=== PATIENT | female | born 1965 | race Two or more races ===

== ENCOUNTER 2020-01-05 10:48 | Emergency (ER) | payer SELFPAY ==
[~2020-01-05] VITALS: Ht 152.4 cm; Wt 125.0 kg
[2020-01-05 10:59] VITALS: BP 163/102
[2020-01-05] MEDS ORDERED: diazePAM 5 MG TABLET PO ONE (11:00)
[2020-01-05] MEDS ORDERED: HYDROcodone/APAP 5/325MG 1 TAB TABLET PO ONE (11:00)
[2020-01-05] MEDS ORDERED: CYCL10TA2 PO (11:07)
[2020-01-05] MEDS ORDERED: HYDR-3164 PO (11:07)
--- NOTE | 2020-01-05 11:07 | PHYS DOC ---
Past Medical History Past Medical History: Renal Failure (MONETHENRIK DELEON) Adult General Chief Complaint Chief Complaint: BACK PAIN - NO INJURY HPI HPI Patient is a 54 year old female with history of end-stage kidney disease on dialysis Saturday last dialyzed on Saturday last week who presents to the ED today complaining of mild intermittent bilateral low back pain no nradiating in nature that began 3 days ago. Patient reports pain is worse on palpation of her low back, patient denies any injury. Denies any loss of bowel bladder function. She reports she has tried taking ibuprofen with no relief. (MONETHENRIK DELEON) Review of Systems Review of Systems Constitutional: Denies fever or chills [] : Denies dysuria or hematuria [] Musculoskeletal: Reports low back pain Integument: Denies rash or skin lesions [] Neurologic: Denies headache, focal weakness or sensory changes [] All other systems were reviewed and found to be within normal limits, except as documented in this note. (ROSABRUCEEmmaHENRIK APRN) Current Medications Current Medications Current Medications Medications (Trade) Dose Ordered Sig/Elizabeth Start Time Stop Time Status Last Admin Dose Admin Acetaminophen/ Hydrocodone Bitart (Lortab 5/325) 1 tab 1X ONCE 01/05/20 11:00 01/05/20 11:22 DC 01/05/20 11:31 1 TAB Diazepam (Valium) 5 mg 1X ONCE 01/05/20 11:00 01/05/20 11:22 DC 01/05/20 11:30 5 MG (GOLLAPALLI,MARLEY E DO) Allergies Allergies Allergies Coded Allergies Type Severity Reaction Last Updated Verified dextran sulfate Allergy Intermediate 01/05/20 Yes (GOLLAPALLI,MARLEY E DO) Physical Exam Physical Exam Constitutional: Well developed, well nourished, no acute distress, non-toxic appearance. [] Abdomen: Bowel sounds normal, soft, no tenderness, no masses, no pulsatile mas ses. [] Skin: Warm, dry, no erythema, no rash. [] Back: Diffuse paraspinal muscle tenderness bilateral lumbar spine, no midline lumbar spine tenderness, no CVA tenderness. [] Extremities: No tenderness, no cyanosis, no clubbing, ROM intact, no edema. [] Neurologic: Alert and oriented X 3, normal motor function, normal sensory function, no focal deficits noted. [] Psychologic: Affect normal, judgement normal, mood normal. [] (HENRIK HEALY APRN) Current Patient Data Vital Signs Vital Signs Date Time Temp Pulse Resp B/P (MAP) Pulse Ox O2 Delivery O2 Flow Rate FiO2 01/05/20 11:31 18 98 Room Air 01/05/20 10:59 97.9 94 163/102 (122) 97.9 (MARLEY BORGES DO) EKG EKG [] (HENRIK HEALY APRN) Radiology/Procedures Radiology/Procedures [] (HENRIK HEALY APRN) Course & Med Decision Making Course & Med Decision Making Pertinent Labs and Imaging studies reviewed. (See chart for details) This is a 54-year-old female patient presenting to the ED today with low back pain, no known injury. No cauda equina syndrome symptoms. Patient was discharged to home with instructions to follow-up with the PCP. She is on dialysis, her next dialysis session is tomorrow. Encouraged to make sure she does not miss it considering she missed the one on Saturday. (HENRIK HEALY APRN) Dragon Disclaimer Dragon Disclaimer This electronic medical record was generated, in whole or in part, using a voice recognition dictation system. (HENRIK HEALY APRN) Attending Signature I have participated in the care of this patient and I have reviewed and agree with all pertinent clinical information above including history, exam, and recommendations. (MARLEY BORGES DO) Departure Departure Impression: Primary Impression: Low back pain Disposition: 01 HOME, SELF-CARE Condition: STABLE Referrals: NO PCP (PCP) Follow-up in 1 to 2 weeks with your doctor Patient Instructions: Back Pain, Adult, [id number] Additional Instructions: Please ensure you get your dialysis done tomorrow. Please take the prescribed medications as ordered. Please come back to the ED at any point symptoms worsen. Scripts Cyclobenzaprine Hcl (CYCLOBENZAPRINE HCL) 10 Mg Tablet 1 TAB PO TID, #30 TAB Prov: HENRIK HEALY APRN 01/05/20 Hydrocodone/Apap 5-325 (NORCO 5-325 TABLET) 1 Each Tablet 1 TAB PO Q6HRS PRN for PAIN, #12 TAB Prov: HENRIK HEALY APRN 01/05/20 Problem Qualifiers Primary Impression: Low back pain Chronicity: acute Back pain laterality: bilateral Sciatica presence: without sciatica Qualified Codes: M54.5 - Low back pain HENRIK HEALY APRN Jan 05, 2020 11:07 MARLEY BORGES DO Jan 06, 2020 10:26
== END 2020-01-05 11:32 | disposition home or self-care (01) ==
LOC: ER 10:48
DX: M54.5 Low back pain (principal); N18.6 End stage renal disease; Z88.2 Allergy status to sulfonamides
CPT/HCPCS: 99283

== ENCOUNTER 2020-05-03 17:04 | Emergency (ER) | payer SELFPAY ==
[~2020-05-03 17:04] MED LIST: CYCL10TA2 PO; HYDR-3164 PO
== END 2020-05-03 20:42 | disposition left against medical advice (07) ==
LOC: ER 17:04
DX: R79.9 Abnormal finding of blood chemistry, unspecified (principal); Z53.21 Procedure and treatment not carried out due to patient leaving prior to being seen by health care provider

== ENCOUNTER 2020-06-14 22:44 | Emergency (ER) | payer OTHER ==
[~2020-06-14] VITALS: Ht 152.4 cm; Wt 59.0 kg
[2020-06-14 22:50] VITALS: BP 93/53
--- NOTE | 2020-06-14 23:17 | RAD ---
Exam: Left knee 3 views INDICATION: Knee pain TECHNIQUE: Frontal, lateral and oblique views of the left knee Comparisons: None FINDINGS: Comminuted minimally displaced fracture involving the left patella. There is a small suprapatellar effusion. Overlying soft tissue swelling is noted. No other fractures are identified. Joint spaces are well-maintained. IMPRESSION: Minimally displaced comminuted fracture involving the left patella. Electronically signed by: Skinny Sebastian MD (06/14/2020 11:14 PM) [id number]
[2020-06-14] MEDS ORDERED: HYDR-3164 PO (23:29)
--- NOTE | 2020-06-14 23:29 | PHYS DOC ---
Past Medical History Past Medical History: Renal Failure Past Surgical History: No Surgical History Smoking Status: Never Smoker Alcohol Use: None General Adult EDM: Chief Complaint: KNEE SWELLING HPI: HPI: Patient is a 54 year old female presents for evaluation after trip and fall. Patient fell onto her knees-- primarily left. Sudden onset of left knee pain. On exam swelling on and round patella. Pain with ROM. Abrasion on right knee. No active bleeding. No other injuries. Review of Systems: Review of Systems: Constitutional: Denies fever or chills. [] Eyes: Denies change in visual acuity. [] HENT: Denies nasal congestion or sore throat. [] Respiratory: Denies cough or shortness of breath. [] Cardiovascular: Denies chest pain or edema. [] GI: Denies abdominal pain, nausea, vomiting, bloody stools or diarrhea. [] : Denies dysuria. [] Musculoskeletal: left knee pain Integument: Denies rash. [] Neurologic: Denies headache, focal weakness or sensory changes. [] Endocrine: Denies polyuria or polydipsia. [] Lymphatic: Denies swollen glands. [] Psychiatric: Denies depression or anxiety. [] Heart Score: Risk Factors: Risk Factors: DM, Current or recent (<one month) smoker, HTN, HLP, family history of CAD, obesity. Risk Scores: Score 0 - 3: 2.5% MACE over next 6 weeks - Discharge Home Score 4 - 6: 20.3% MACE over next 6 weeks - Admit for Clinical Observation Score 7 - 10: 72.7% MACE over next 6 weeks - Early Invasive Strategies Allergies: Allergies: Allergies Coded Allergies Type Severity Reaction Last Updated Verified dextran sulfate Allergy Intermediate 01/05/20 Yes Physical Exam: PE: Constitutional: Well developed, well nourished, no acute distress, non-toxic appearance. [] HENT: Normocephalic, atraumatic, bilateral external ears normal, oropharynx moist, no oral exudates, nose normal. [] Eyes: PERRLA, EOMI, conjunctiva normal, no discharge. [] Neck: Normal range of motion, no tenderness, supple, no stridor. [] Cardiovascular:Heart rate regular rhythm, no murmur [] Lungs & Thorax: Bilateral breath sounds clear to auscultation [] Abdomen: Bowel sounds normal, soft, no tenderness, no masses, no pulsatile masses. [] Skin: Warm, dry, no erythema, no rash. [] Back: No tenderness, no CVA tenderness. [] Extremities: swelling along left knee on and around patella. LLE nvi, Abraion over right patella. Neurologic: Alert and oriented X 3, normal motor function, normal sensory function, no focal deficits noted. [] Psychologic: Affect normal, judgement normal, mood normal. [] Current Patient Data: Vital Signs: Vital Signs Date Time Temp Pulse Resp B/P (MAP) Pulse Ox O2 Delivery O2 Flow Rate FiO2 06/14/20 22:50 97.4 64 18 93/53 (66) 98 Room Air 97.4 EKG: EKG: [] Radiology/Procedures: Radiology/Procedures: [] Impression: Wet Read Patella fracture Treatment with norco. Will place in knee immobilizer. Rx norco. Refer to Ortho. Course & Med Decision Making: Course & Med Decision Making Pertinent Labs and Imaging studies reviewed. (See chart for details) [] Dragon Disclaimer: Dragamina Disclaimer: This electronic medical record was generated, in whole or in part, using a voice recognition dictation system. Departure Departure Impression: Primary Impression: Knee pain Additional Impression: Patella fracture Disposition: HOME, SELF-CARE Condition: STABLE Referrals: NO PCP (PCP) Patient Instructions: Patellar Fracture, Adult Scripts Hydrocodone/Apap 5-325 (NORCO 5-325 TABLET) 1 Each Tablet 1 TAB PO TID, #20 TAB Prov: TERE ZABALA DO 06/14/20 Justicifation of Admission Dx: Justifications for Admission: Justification of Admission Dx: N/A TERE ZABALA DO Jun 14, 2020 23:29
[2020-06-14] MEDS ORDERED: HYDROcodone/APAP 5/325MG 1 TAB TABLET PO ONE (23:45)
[2020-06-25] MEDS ORDERED: AMIO200T7 PO (12:05)
[2020-06-25] MEDS ORDERED: CALC1TAB54 PO (12:05)
== END 2020-06-15 00:20 | disposition home or self-care (01) ==
LOC: ER 22:44
DX: S82.092A Other fracture of left patella, initial encounter for closed fracture (principal); M25.562 Pain in left knee; R60.0 Localized edema; N19 Unspecified kidney failure; Z88.8 Allergy status to other drugs, medicaments and biological substances; W01.0XXA Fall on same level from slipping, tripping and stumbling without subsequent striking against object, initial encounter; Y93.89 Activity, other specified; Y92.89 Other specified places as the place of occurrence of the external cause; Y99.8 Other external cause status
CPT/HCPCS: 29505; 73562; 99283

== ENCOUNTER → 2020-08-08 | Outpatient (CLI) | payer OTHER ==
[2020-06-27 15:00] VITALS: BP 103/36
[~2020-08-08] MED LIST changes: +AMIO200T7 PO; +CALC1TAB54 PO; +REGADENOSON 0.4 MG/5 ML DISP.SYRIN. IV ONE
--- NOTE | 2020-08-09 17:14 | RAD ---
MR#: [id number] Date of Study: 08/08/2020 Ordering Physician: JUVENTINO DAY, Referring Physician: OLEG CARY Tech: RT Noelle Mattson) (N) APPROVED REPORT Test Type: Pharmacological Stress Nurse/Tech: Cherry Sarmiento R.N. Test Indications: paroxysmal afib Cardiac History: afib, HD Medications: See Electronic Medical Record Medical History: See Electronic Medical Record Resting ECG: SR w/ inverted T waves in leads I,AVR,AVL, V1-V2 Resting Heart Rate: 63 bpm Resting Blood Pressure: 112/56mmHg Pretest Chest Pain: No chest pain Nurse/Tech Notes S1S2, lungs CTA Consent: The procedure was explained to the patient in lay terms. Informed consent was witnessed. Deep eout was entered into [facility]. History and Stress Test performed by RT Noelle Calvillo) (N) Pharm. Details Pharmacologic stress testing was performed using 0.4mg per 5ml of regadenoson given intravenously ove r 7-10 seconds. Stress Symptoms No chest pain or symptoms. POST EXERCISE Reason for Termination: Infusion complete Max HR: 100 bpm Max Blood Pressure: 112/58mmHg Blood Pressure response to exercise: Normal blood pressure response during stress. Heart Rate response to exercise: wnl Chest Pain: No. Arrhythmia: No. ST Change: No. INTERPRETATION Stress EKG Conclusion: The resting EKG shows a sinus rhythm with no mild nonspecific T wave changes. The stress EKG shows no significant changes from baseline. No EKG evidence of stress-induced ischemia. Imaging Protocol IMAGE PROTOCOL: Rest Tc-99m/stress Tc-99m 1 day Rest: Stress: Viability: Radiopharm.Tc99m [id number] Sestamibi Dose10.3mCi 31.8mCi Duration 13min. 13min. Img Date 08/08/2020 08/08/2020 Inj-Img [id number]. 60min. Rest Admin Site:IV - Right AntecubitalAdministrator:RT Noelle Calvillo)(N) Stress Admin Site: IV - Right AntecubitalAdministrator: Carola Fuentes, RT (R)(N) STRESS DATA End Diast. Vol.73.0mlLVEDV index BSA47.0ml End Syst. Vol.15.0mlLVESV index BSA9.0ml Myocardial Bpod041.0gEject. Slvbsuhr35.0% Stress Scores Regional WT0.00Summed WT0.00 Regional WM0.00Summed WM0.00 LV Perfusion The stress scans showed no significant defects. The rest scans showed no significant defects. Nuclear imaging shows no reversible ischemia or infarct. Wall Motion Left ventricular systolic function is normal with no regional wall motion abnormalities and an ejecti on fraction of greater than 70%. LV Perf. Quant 17 Seg. SSS0.00 17 Seg. SRS0.00 17 Seg. SDS0.00 Stress Defect Extent (% LAD)0.00Rest Defect Extent (% LAD)0.00Rev. Defect Extent (% LAD)0.00 Stress Defect Extent (% LCX) 0.00Rest Defect Extent (% LCX)0.00Rev. Defect Extent (% LCX)0.00 Stress Defect Extent (% RCA)0.00Rest Defect Extent (% RCA)0.00Rev. Defect Extent (% RCA)0.00 Stress Defect Extent (% SEBASTIAN)0.00Rest Defect Extent (% SEBASTIAN)0.00Rev. Defect Extent (% SEBASTIAN)0.00 Conclusion 1. No EKG evidence of stress-induced ischemia. 2. Nuclear imaging shows no reversible ischemia or infarct. 3. Normal left ventricular systolic function with an ejection fraction of greater than 70%. 4. Low risk Lexiscan nuclear stress test. Signed by : Jasson Sheriff MD Electronically Approved : 08/09/2020 17:13:31
== END ==
LOC: NM 10:45
PROVIDERS: ATTEND Internal Medicine Cardiovascular Disease
DX: I48.0 Paroxysmal atrial fibrillation (principal)
CPT/HCPCS: 78452; 93017; A9500; J2785

== ENCOUNTER 2021-02-01 10:02 | Inpatient (IN) | payer OTHER ==
[2021-02-01] VITALS (12 sets, daily range): BP systolic 80–117; BP diastolic 51–65
[~2021-02-01] VITALS: Ht 152.4 cm; Wt 62.3 kg
[~2021-02-01 10:02] MED LIST changes: -REGADENOSON 0.4 MG/5 ML DISP.SYRIN. IV ONE
--- NOTE | 2021-02-01 10:29 | PHYS DOC ---
Past Medical History Past Medical History: Hypertension, Renal Failure Additional Past Medical Histor: DIALYSIS MWF Past Surgical History: Cholecystectomy, Hysterectomy, Other Additional Past Surgical Histo: HERNIA/FISTULA LEFT ARM Smoking Status: Former Smoker Alcohol Use: None General Adult EDM: Chief Complaint: SHORTNESS OF BREATH HPI: HPI: Patient is a 55 year old female who presents with 2 days ago began having shortness of breath and a cough. She states is a dry cough. She states that she has been having a fever at night and she is waking up sweaty. Patient states she went to dialysis yesterday but they were not open so she did not get dialysis. She states that she sees Dr. Delgadillo. Patient denies nausea, vomiting, urinary symptoms, back pain, neck pain, vision changes, focal deficits, numbness or tingling, abdominal pain, dizziness, headache, chest pain, diarrhea, syncope. Upon arrival her blood pressure is in the 70s. Patient has no symptoms of hypotension. Patient has a history of renal failure, no longer makes urine, A. fib, hypertension, high cholesterol, hysterectomy, former smoker. Review of Systems: Review of Systems: Constitutional: + fever or chills. [] Eyes: Denies change in visual acuity. [] HENT: Denies nasal congestion or sore throat. [] Respiratory: + cough or +shortness of breath. [] Cardiovascular: Denies chest pain or edema. [] GI: Denies abdominal pain, nausea, vomiting, bloody stools or diarrhea. [] : Denies dysuria. [] Musculoskeletal: Denies back pain or joint pain. [] Integument: Denies rash. [] Neurologic: Denies headache, focal weakness or sensory changes. [] Endocrine: Denies polyuria or polydipsia. [] Lymphatic: Denies swollen glands. [] Psychiatric: Denies depression or anxiety. [] Heart Score: C/O Chest Pain: No Risk Factors: Risk Factors: DM, Current or recent (<one month) smoker, HTN, HLP, family history of CAD, obesity. Risk Scores: Score 0 - 3: 2.5% MACE over next 6 weeks - Discharge Home Score 4 - 6: 20.3% MACE over next 6 weeks - Admit for Clinical Observation Score 7 - 10: 72.7% MACE over next 6 weeks - Early Invasive Strategies Allergies: Allergies: Allergies Coded Allergies Type Severity Reaction Last Updated Verified dextran sulfate Allergy Intermediate 01/05/20 Yes Physical Exam: PE: Constitutional: Well developed, well nourished, no acute distress, non-toxic appearance. [] HENT: Normocephalic, atraumatic, bilateral external ears normal, oropharynx moist, no oral exudates, nose normal. [] Eyes: PERRLA, EOMI, conjunctiva normal, no discharge. [] Neck: Normal range of motion, no tenderness, supple, no stridor. [] Cardiovascular:Heart rate regular rhythm, no murmur [] Lungs & Thorax: Bilateral breath sounds clear to auscultation [] Abdomen: Bowel sounds normal, soft, no tenderness, no masses, no pulsatile masses. [] Skin: Warm, dry, no erythema, no rash. [] Back: No tenderness, no CVA tenderness. [] Extremities: No tenderness, no cyanosis, no clubbing, ROM intact, no edema. [] Neurologic: Alert and oriented X 3, normal motor function, normal sensory function, no focal deficits noted. [] Psychologic: Affect normal, judgement normal, mood normal. Normal Physical Exam[] EKG: EK and read by Dr Cunha as Sinus Rhythm and no STEMI Radiology/Procedures: Radiology/Procedures: [] Impression: [facility] [address] [place], [place] [id number] IMAGING REPORT Signed PATIENT: OVIDIO RYAN TACCOUNT: [id number] : 1965 LOCATION: ER AGE: 55 SEX: F EXAM STATUS: REG ER ORD. PHYSICIAN: LISSY LEYVA APRN REASON: shortness of breath PROCEDURE: PORTABLE CHEST 1V INDICATION: Reason: shortness of breath / Spl. Instructions: / History: COMPARISON: June 21, 2020 FINDINGS: Single view of chest obtained. Mild interstitial opacities bilaterally. Fullness of the bilateral pulmonary hilum. No definite new focal consolidation IMPRESSION: * Interstitial prominence is again seen bilaterally without a new region of consolidation. * Fullness of the bilateral pulmonary hilum is again seen. Some possible causes would include an enlarged pulmonary arteries or enlarged lymph nodes. Electronically signed by: Kristin Duong MD (02/01/2021 11:07 AM) [id number] DICTATED and SIGNED BY: KRISTIN DUONG MD DATE: 02/01/21 [id number] 0 Course & Med Decision Making: Course & Med Decision Making Pertinent Labs and Imaging studies reviewed. (See chart for details) COVID-19 CRITERIA: The patient was evaluated during the global COVID-19 pandemic, and that diagnosis was suspected/considered upon their initial presentation. Their evaluation, treatment and testing was consistent with current guidelines for patients who present with complaints or symptoms that may be related to COVID-19. See HPI. Alert and oriented x4. Ambulatory with a steady gait. Speaks in full clear sentences. Skin pink warm and dry. No peripheral edema. Abdomen is soft and nontender. Lungs are clear to auscultation all lobes. Patient is given a l iter of normal saline due to her low blood pressure. She is tested for Covid and influenza. Potassium 7.1, creat 14.3 and BUN is 108. Patient does have renal failure and does not make urine. She is given a bolus of normal saline due to her low blood pressure and her blood pressure is now in the 90s over 70s. Have called and spoken to Dr. Delgadillo and let him know of patient findings. He states he will see the patient and gave me no further orders. I spoke to Dr. Mcdonald he states to place the patient in ICU for closer observation. No further orders were given. He states no other medications are given and patient will get her dialysis. [] Juli Disclaimer: Juli Disclaimer: This electronic medical record was generated, in whole or in part, using a voice recognition dictation system. COVID-19 Patient Risks: Age 65 or older: No Sign of co-morbidity: Yes Exp to person + for COVID: No Exp to PUI: No Travel from affected area: No Lower respiratory symptoms: Yes Fever: Yes Other: No PPE Use: Full PPE with N95 mask or PAPR: Yes Departure Departure Impression: Primary Impression: Acute on chronic renal failure Qualified Codes: N17.9 - Acute kidney failure, unspecified; N18.9 - Chronic kidney disease, unspecified Additional Impressions: Hyperkalemia Hypotension Qualified Codes: I95.9 - Hypotension, unspecified Person under investigation for COVID-19 Disposition: ADMITTED INPATIENT Admitting Physician: Naomi Mcdonald Condition: STABLE Referrals: NAOMI MCDONALD MD (PCP) LISSY LEYVA MAINTENANCE MANAGER Feb 01, 2021 10:29
[2021-02-01] MEDS ORDERED: IV NORMAL SALINE 1000ML BAG 1,000 ML IV ONE (10:30)
[2021-02-01 10:59] LABS: BASO # 0.1 x10^3/uL (0.0-0.2); BASO % 1 % (0-3); EOS # 0.2 x10^3/uL (0.0-0.7); EOS % 2 % (0-3); HEMATOCRIT 37.1 % (36.0-47.0); HEMOGLOBIN 12.2 g/dL (12.0-15.5); LYMPH # 1.2 x10^3/uL (1.0-4.8); LYMPH % 14 % (24-48); MEAN CORPUSCULAR HEMOGLOBIN 33 pg (25-35); MEAN CORPUSCULAR HGB CONC 33 g/dL (31-37); MEAN CORPUSCULAR VOLUME 99 fL (79-100); MONO # 0.5 x10^3/uL (0.0-1.1); MONO % 5 % (0-9); NEUT # 6.6 x10^3/uL (1.8-7.7); NEUT % 78 % (31-73); PLATELET COUNT 183 x10^3/uL (140-400); RED BLOOD COUNT 3.74 x10^6/uL (3.50-5.40); RED CELL DISTRIBUTION WIDTH 14.7 % (11.5-14.5); WHITE BLOOD COUNT 8.5 x10^3/uL (4.0-11.0)
[2021-02-01 11:08] LABS: ALBUMIN/GLOBULIN RATIO 0.8 (1.0-1.7); CALCIUM 7.5 mg/dL (8.5-10.1); CREATININE 14.3 mg/dL (0.6-1.0); GFR 2.7; TOTAL BILIRUBIN 0.5 mg/dL (0.2-1.0); TOTAL PROTEIN 6.6 g/dL (6.4-8.2)
[2021-02-01 11:09] LABS: PROTHROMBIN TIME PATIENT 15.1 SEC (11.7-14.0)
--- NOTE | 2021-02-01 11:09 | RAD ---
INDICATION: Reason: shortness of breath / Spl. Instructions: / History: COMPARISON: June 21, 2020 FINDINGS: Single view of chest obtained. Mild interstitial opacities bilaterally. Fullness of the bilateral pulmonary hilum. No definite new focal consolidation IMPRESSION: * Interstitial prominence is again seen bilaterally without a new region of consolidation. * Fullness of the bilateral pulmonary hilum is again seen. Some possible causes would include an enl arged pulmonary arteries or enlarged lymph nodes. Electronically signed by: David Wan MD (02/01/2021 11:07 AM) [id number]
[2021-02-01 11:20] LABS: POTASSIUM 7.1 mmol/L (3.5-5.1)
[2021-02-01 11:26] LABS: INFLUENZA A PATIENT NEGATIVE (NEGATIVE); INFLUENZA B PATIENT NEGATIVE (NEGATIVE)
[2021-02-01] MEDS ORDERED: IV NORMAL SALINE 1000ML BAG 1,000 ML IV PRN ×2 (12:45)
[2021-02-01] MEDS ORDERED: DIALYSIS PATIENT. MC PRN (12:45)
--- NOTE | 2021-02-01 12:50 | PDOC2 ---
CONSULT Date of Consult Date of Consult DATE: 02/01/21 TIME: 12:45 Reason for Consult Reason for Consult: HIGH K AND ESRD Referring Physician Referring Physician: DREW Identification/Chief Complaint Chief Complaint SOB Source Source: Chart review, Patient History of Present Illness Reason for Visit: THIS IS A 55 YR OLD ESRD PT ON HD. HAS A LEFT ARM AVF FOR HER HD. HAS OP HD ON TTS. STATES SHE MISSED YESTERDAY. NOW SOB. LABS SHOWED A K OF 7.1. CURRENTLY PUI FOR COVID 19. HAS ESRD DUE TO HTN AND DM II. LABS OTHERWISE C/W ESRD. Past Medical History Cardiovascular: HTN Pulmonary: No pertinent hx CENTRAL NERVOUS SYSTEM: Other GI: No pertinent hx Heme/Onc: Anemia NOS Hepatobiliary: No pertinent hx Psych: No pertinent hx Musculoskeletal: Osteoarthritis Rheumatologic: No pertinent hx Renal/: Chronic renal failure Endocrine: No pertinent hx, Hyperparathyroidism Past Surgical History Past Surgical History L ARM AVF Past Surgical History: Cholecystectomy, Other Family History Family History: Hypertension Social History ALCOHOL: none Lives: with Family Current Problem List Problem List Problems Medical Problems: (1) Acute on chronic renal failure Status: Acute (2) Hyperkalemia Status: Acute (3) Hypotension Status: Acute (4) Person under investigation for COVID-19 Status: Acute Current Medications Current Medications Current Medications Sodium Chloride 1,000 ml @ 1,000 mls/hr 1X ONCE IV Last administered on 02/01/21at 10:42; Start 02/01/21 at 10:30; Stop 02/01/21 at 11:29; Status DC Sodium Chloride 1,000 ml @ 1,000 mls/hr Q1H PRN IV hypotension; Start 02/01/21 at 12:45; Stop 02/01/21 at 18:44 Sodium Chloride 1,000 ml @ 400 mls/hr Q2H30M PRN IV PATENCY; Start 02/01/21 at 12:45; Stop 02/02/21 at 00:44 Info (PHARMACY MONITORING -- do not chart) 1 each PRN DAILY PRN MC SEE COMMENTS; Start 02/01/21 at 12:45 Active Scripts Active Pacerone (Amiodarone Hcl) 200 Mg Tablet 200 Mg PO DAILY 30 Days [place] 500+D Tablet (Calcium Carbonate/Vitamin D3) 1 Each Tablet 1 Tab PO BIDWMEALS 90 Days [place] 5-325 Tablet (Acetaminophen/Hydrocodone Bitart) 1 Each Tablet 1 Tab PO TID Allergies Allergies: Coded Allergies: dextran sulfate (Verified Allergy, Intermediate, 01/05/20) ROS General: YES: Fatigue, Malaise, Appetite PSYCHOLOGICAL ROS: YES: Anxiety Eyes: Yes Decreased vision HEENT: YES: Heacaches Respiratory: YES: Cough, Shortness of breath Cardiovascular: yes Orthopnea Gastrointestinal: Yes Constipation Genitourinary: YES Other (ANURIA) Musculoskeletal: Yes Muscular Weakness Neurological: Yes Weakness Skin: Yes Dry Skin Physical Exam General: Alert, Oriented X3, Cooperative, No acute distress HEENT: EOMI, Mucous membr. moist/pink Lungs: Other (DECREASED AT BASES) Heart: Regular rate Abdomen: Normal bowel sounds, Soft, No tenderness Extremities: No cyanosis Skin: No rashes Neuro: Normal speech Psych/Mental Status: Mental status NL, Mood NL MUSCULOSKELETAL: No joint tenderness, No deformity, No swelling Vitals VITALS Vital Signs Date Time Temp Pulse Resp B/P (MAP) Pulse Ox O2 Delivery O2 Flow Rate FiO2 02/01/21 11:32 58 24 98/54 (69) 92 Room Air 02/01/21 10:17 98.3 98.3 Labs Labs Laboratory Tests Test 02/01/21 10:27 02/01/21 10:35 Influenza Type A Antigen Negative (NEGATIVE) Influenza Type B Antigen Negative (NEGATIVE) White Blood Count 8.5 x10^3/uL (4.0-11.0) Red Blood Count 3.74 x10^6/uL (3.50-5.40) Hemoglobin 12.2 g/dL (12.0-15.5) Hematocrit 37.1 % (36.0-47.0) Mean Corpuscular Volume 99 fL (79-100) Mean Corpuscular Hemoglobin 33 pg (25-35) Mean Corpuscular Hemoglobin Concent 33 g/dL (31-37) Red Cell Distribution Width 14.7 % (11.5-14.5) Platelet Count 183 x10^3/uL (140-400) Neutrophils (%) (Auto) 78 % (31-73) Lymphocytes (%) (Auto) 14 % (24-48) Monocytes (%) (Auto) 5 % (0-9) Eosinophils (%) (Auto) 2 % (0-3) Basophils (%) (Auto) 1 % (0-3) Neutrophils # (Auto) 6.6 x10^3/uL (1.8-7.7) Lymphocytes # (Auto) 1.2 x10^3/uL (1.0-4.8) Monocytes # (Auto) 0.5 x10^3/uL (0.0-1.1) Eosinophils # (Auto) 0.2 x10^3/uL (0.0-0.7) Basophils # (Auto) 0.1 x10^3/uL (0.0-0.2) Prothrombin Time 15.1 SEC (11.7-14.0) Prothromb Time International Ratio 1.2 (0.8-1.1) Sodium Level 142 mmol/L (136-145) Potassium Level 7.1 mmol/L (3.5-5.1) Chloride Level 104 mmol/L (98-107) Carbon Dioxide Level 20 mmol/L (21-32) Anion Gap 18 (6-14) Blood Urea Nitrogen 108 mg/dL (7-20) Creatinine 14.3 mg/dL (0.6-1.0) Estimated GFR (Cockcroft-Gault) 2.7 BUN/Creatinine Ratio 8 (6-20) Glucose Level 81 mg/dL (70-99) Lactic Acid Level 1.1 mmol/L (0.4-2.0) Calcium Level 7.5 mg/dL (8.5-10.1) Magnesium Level 2.2 mg/dL (1.8-2.4) Total Bilirubin 0.5 mg/dL (0.2-1.0) Aspartate Amino Transf (AST/SGOT) 14 U/L (15-37) Alanine Aminotransferase (ALT/SGPT) 9 U/L (14-59) Alkaline Phosphatase 121 U/L (46-116) Troponin I Quantitative < 0.017 ng/mL (0.000-0.055) Total Protein 6.6 g/dL (6.4-8.2) Albumin 3.0 g/dL (3.4-5.0) Albumin/Globulin Ratio 0.8 (1.0-1.7) Laboratory Tests Test 02/01/21 10:27 02/01/21 10:35 Influenza Type A Antigen Negative (NEGATIVE) Influenza Type B Antigen Negative (NEGATIVE) White Blood Count 8.5 x10^3/uL (4.0-11.0) Red Blood Count 3.74 x10^6/uL (3.50-5.40) Hemoglobin 12.2 g/dL (12.0-15.5) Hematocrit 37.1 % (36.0-47.0) Mean Corpuscular Volume 99 fL (79-100) Mean Corpuscular Hemoglobin 33 pg (25-35) Mean Corpuscular Hemoglobin Concent 33 g/dL (31-37) Red Cell Distribution Width 14.7 % (11.5-14.5) Platelet Count 183 x10^3/uL (140-400) Neutrophils (%) (Auto) 78 % (31-73) Lymphocytes (%) (Auto) 14 % (24-48) Monocytes (%) (Auto) 5 % (0-9) Eosinophils (%) (Auto) 2 % (0-3) Basophils (%) (Auto) 1 % (0-3) Neutrophils # (Auto) 6.6 x10^3/uL (1.8-7.7) Lymphocytes # (Auto) 1.2 x10^3/uL (1.0-4.8) Monocytes # (Auto) 0.5 x10^3/uL (0.0-1.1) Eosinophils # (Auto) 0.2 x10^3/uL (0.0-0.7) Basophils # (Auto) 0.1 x10^3/uL (0.0-0.2) Prothrombin Time 15.1 SEC (11.7-14.0) Prothromb Time International Ratio 1.2 (0.8-1.1) Sodium Level 142 mmol/L (136-145) Potassium Level 7.1 mmol/L (3.5-5.1) Chloride Level 104 mmol/L (98-107) Carbon Dioxide Level 20 mmol/L (21-32) Anion Gap 18 (6-14) Blood Urea Nitrogen 108 mg/dL (7-20) Creatinine 14.3 mg/dL (0.6-1.0) Estimated GFR (Cockcroft-Gault) 2.7 BUN/Creatinine Ratio 8 (6-20) Glucose Level 81 mg/dL (70-99) Lactic Acid Level 1.1 mmol/L (0.4-2.0) Calcium Level 7.5 mg/dL (8.5-10.1) Magnesium Level 2.2 mg/dL (1.8-2.4) Total Bilirubin 0.5 mg/dL (0.2-1.0) Aspartate Amino Transf (AST/SGOT) 14 U/L (15-37) Alanine Aminotransferase (ALT/SGPT) 9 U/L (14-59) Alkaline Phosphatase 121 U/L (46-116) Troponin I Quantitative < 0.017 ng/mL (0.000-0.055) Total Protein 6.6 g/dL (6.4-8.2) Albumin 3.0 g/dL (3.4-5.0) Albumin/Globulin Ratio 0.8 (1.0-1.7) Images Images INDICATION: Reason: shortness of breath / Spl. Instructions: / History: COMPARISON: June 21, 2020 FINDINGS: Single view of chest obtained. Mild interstitial opacities bilaterally. Fullness of the bilateral pulmonary hilum. No definite new focal consolidation IMPRESSION: * Interstitial prominence is again seen bilaterally without a new region of consolidation. * Fullness of the bilateral pulmonary hilum is again seen. Some possible causes would include an enlarged pulmonary arteries or enlarged lymph nodes. Electronically signed by: David Wan MD (02/01/2021 11:07 AM) [id number] Assessment/Plan Assessment/Plan IMP HYPERKALEMIA ESRD ANEMIA HTN CHF-DIASTOLIC PULM EDME PLAN HD TODAY UF TO TW CONT HOME MEDS BRENT NEEDED ENC COMPLIANCE PUI FOR COVID 19 JEREMIE MILLS MD Feb 01, 2021 12:50
--- NOTE | 2021-02-01 14:15 | NUR ---
Rec'd from ER per cart. Pt alert and oriented mostly bermudian speaking but some understanding present. O2sat on r/a is 94%. No family here. Pt is covid pending. In isol;atopn for that. Lt dialysis fistula present with good bruit. Spoke with daughter on phone for admission questions. Pt denies any discomfort. Pending dialysis any time. Skin intact.
--- NOTE | 2021-02-01 17:57 | NUR ---
denise dialysis ok. 3.5kg reportedly removed. Pt in good spirits. Spoke with DR Greene. on room air sat 95%
[2021-02-01] MEDS ORDERED: NITR0.4T22 SL (18:08)
[2021-02-01] MEDS ORDERED: MIDO2.5T PO (18:08)
[2021-02-01] MEDS ORDERED: VENL37.56 PO (18:09)
[2021-02-01] MEDS ORDERED: PANT20TA2 PO (18:46)
[2021-02-01] MEDS ORDERED: APIX2.5T PO (18:46)
[2021-02-01] MEDS ORDERED: CALC0.25 PO (18:46)
[2021-02-01] MEDS ORDERED: CALC667T4 PO (18:46)
[2021-02-01] MEDS ORDERED: NITROGLYCERIN SUBLINGUAL 0.4 MG BOTTLE OF 25. SL SCH (21:15)
[2021-02-01] MEDS: APIXABAN 2.5 MG TABLET. PO SCH (21:57)
[2021-02-01] MEDS: MIDODRINE 2.5 MG TABLET PO PRN (21:57)
[2021-02-02] VITALS (12 sets, daily range): BP systolic 78–120; BP diastolic 35–75
--- NOTE | 2021-02-02 01:45 | NUR ---
BP 78/46, pulse 54, Dr. Delgadillo notified. Order's rec'd for NS bolus and Levophed gtt prn. Patient is sleeping and offers no c/o.
[2021-02-02] MEDS: IV NORMAL SALINE 1000ML BAG 500 ML IV SCH ×2 (02:00→04:00)
[2021-02-02] MEDS ORDERED: NOREPINEPHRINE VIAL 8 MG in IV DEXTROSE 5% 250 ML IV PRN (02:00)
--- NOTE | 2021-02-02 06:57 | NUR ---
Levo not started, BP 105/61. On room air all noc, sPO2 100%. Covid negative.
[2021-02-02] MEDS ORDERED: PANTOPRAZOLE 40 MG TABLET.DR. PO SCH (07:30)
[2021-02-02 08:00] LABS: BASO # 0.1 x10^3/uL (0.0-0.2); BASO % 1 % (0-3); EOS # 0.2 x10^3/uL (0.0-0.7); EOS % 2 % (0-3); HEMATOCRIT 40.8 % (36.0-47.0); HEMOGLOBIN 13.5 g/dL (12.0-15.5); LYMPH # 1.3 x10^3/uL (1.0-4.8); LYMPH % 18 % (24-48); MEAN CORPUSCULAR HEMOGLOBIN 33 pg (25-35); MEAN CORPUSCULAR HGB CONC 33 g/dL (31-37); MEAN CORPUSCULAR VOLUME 99 fL (79-100); MONO # 0.8 x10^3/uL (0.0-1.1); MONO % 11 % (0-9); NEUT # 4.9 x10^3/uL (1.8-7.7); NEUT % 68 % (31-73); PLATELET COUNT 182 x10^3/uL (140-400); RED BLOOD COUNT 4.11 x10^6/uL (3.50-5.40); RED CELL DISTRIBUTION WIDTH 14.5 % (11.5-14.5); WHITE BLOOD COUNT 7.2 x10^3/uL (4.0-11.0)
[2021-02-02 08:15] LABS: CALCIUM 7.3 mg/dL (8.5-10.1); CREATININE 7.9 mg/dL (0.6-1.0); GFR 5.3; POTASSIUM 5.1 mmol/L (3.5-5.1)
[2021-02-02 08:24] LABS: CHOLESTEROL/HDL RATIO 4.3
[2021-02-02] MEDS ORDERED: VENLAFAXINE 75 MG TABLET. PO SCH (09:00)
--- NOTE | 2021-02-02 09:05 | PDOC ---
Provider Note Date of Service: DATE: 02/02/21 TIME: 09:04 Provider Note Pt seen .H&P dictated.#[id number]. Justifications for Admission Other Justification DUY MCDONALD MD Feb 02, 2021 09:05
[2021-02-02] MEDS ORDERED: ALBUMIN HUMAN 25% 200 ML IV PRN ×2 (09:30→12:00)
[2021-02-02] MEDS ORDERED: IV NORMAL SALINE 1000ML BAG 1,000 ML IV PRN ×4 (09:30→12:00)
[2021-02-02] MEDS ORDERED: LIDOCAINE 1% PF 2 ML VIAL. INJ PRN (09:30)
[2021-02-02] MEDS ORDERED: diphenhydrAMINE 50 MG/ML VIAL IV PRN ×2 (09:30)
[2021-02-02] MEDS ORDERED: DIALYSIS PATIENT. MC PRN ×4 (09:30→12:00)
[2021-02-02] MEDS: CALCIUM ACETATE 667 MG CAPSULE PO SCH ×2 (11:02→12:00)
[2021-02-02] MEDS: MIDODRINE 2.5 MG TABLET PO PRN (11:02)
[2021-02-02] MEDS: APIXABAN 2.5 MG TABLET. PO SCH (11:02)
--- NOTE | 2021-02-02 11:23 | HP ---
ADMIT DATE: 02/02/2021 LOCATION: ICU, room 8. REASON FOR ADMISSION TO THE HOSPITAL: Renal failure, hyperkalemia, missed dialysis. HISTORY OF PRESENT ILLNESS: The patient is a 55-year-old female with history of dialysis. She goes to dialysis in [facility]. She goes on Saturday, , Saturday. Saturday when she went there was a leakage in the building, so dialysis was closed, she could not get her dialysis and yesterday she came to the emergency room with shortness of breath. She was found to have fluid overload and potassium was 7.1 and patient was admitted to the hospital in ICU, was dialyzed last night. The patient feels better. Potassium came down to 5. PAST MEDICAL HISTORY: Hypertension, chronic kidney disease, hyperparathyroidism and orthostatic hypotension. PAST SURGICAL HISTORY: AV fistula, gallbladder surgery. FAMILY HISTORY: Hypertension. SOCIAL HISTORY: Denies smoking or alcohol. ALLERGIES: DEXTRAN SULFATE. MEDICATIONS AT HOME: The patient is on calcitriol 0.25 daily, Eliquis 2.5 twice a day, calcium acetate 2 tablets 3 times a day, midodrine 2.5 daily, nitro daily, pantoprazole 40 mg daily, venlafaxine 1 tablet twice a day. REVIEW OF SYSTEMS: Feels better, short of breath yesterday. No chest pain. PHYSICAL EXAMINATION: VITAL SIGNS: At the time of admission shows temperature 98, pulse 60, respirations 16, blood pressure 83/45, 98 on room air. HEENT: Head is atraumatic. Pupils equal. Oral cavity, no congestion. NECK: Supple. Thyroid not enlarged. JVD not elevated. CHEST: Symmetrical. CARDIOVASCULAR: S1, S2. LUNGS: Clear to auscultation. No rales, no wheezing. ABDOMEN: Soft, bowel sounds present. No mass palpable. EXTERNAL GENITALIA: No Torrez. RECTAL EXAM: Deferred. EXTREMITIES: No calf tenderness, no edema. Has AV shunt. NEUROLOGIC: Moving all extremities. No focal deficits noted. LABORATORY DATA: Shows a white count of 8, hemoglobin 12, platelets 183. INR 1.2. Electrolytes show sodium 142, potassium 7.1, chloride 104, bicarbonate 20, anion gap 18, BUN 18, creatinine 14.3. LFTs were normal. Troponin was negative. COVID test negative. Influenza negative. Chest x-ray; some fluid overload. EKG done, report is pending. FINAL ASSESSMENT: 1. Hyperkalemia. 2. End-stage renal disease, on dialysis. The patient missed dialysis secondary to problems at the dialysis center, which was closed Saturday. She goes to dialysis Tuesdays, , Saturday. 3. Chronic atrial fibrillation, on Eliquis. 4. Orthostatic hypotension, on midodrine. PLAN: At this time, the patient was dialyzed yesterday and she did well. Potassium is 5.1, today creatinine is 7.9. She is feeling better. She could be discharged home later today and do outpatient dialysis on Saturday. KADI/NASIR/TERRENCE DR: Juan TID: [id number]
--- NOTE | 2021-02-02 11:44 | PDOC ---
Renal-Progress Notes Subjective Notes Notes NO NEW COMPLAINTS History of Present Illness Hx of present illness STABLE Vitals Vitals Vital Signs Date Time Temp Pulse Resp B/P (MAP) Pulse Ox O2 Delivery O2 Flow Rate FiO2 02/02/21 11:02 64 110/58 02/02/21 08:41 Room Air 02/02/21 08:33 98.3 16 100 98.3 Weight Weight [ ] I.O. Intake and Output Intake and Output 02/02/21 07:00 Intake Total 1500 ml Output Total 0 ml Balance 1500 ml Intake IV Total 1000 ml Other 500 ml Output Urine Total 0 ml Labs Labs Laboratory Tests Test 02/02/21 07:40 White Blood Count 7.2 x10^3/uL (4.0-11.0) Red Blood Count 4.11 x10^6/uL (3.50-5.40) Hemoglobin 13.5 g/dL (12.0-15.5) Hematocrit 40.8 % (36.0-47.0) Mean Corpuscular Volume 99 fL (79-100) Mean Corpuscular Hemoglobin 33 pg (25-35) Mean Corpuscular Hemoglobin Concent 33 g/dL (31-37) Red Cell Distribution Width 14.5 % (11.5-14.5) Platelet Count 182 x10^3/uL (140-400) Neutrophils (%) (Auto) 68 % (31-73) Lymphocytes (%) (Auto) 18 % (24-48) Monocytes (%) (Auto) 11 % (0-9) Eosinophils (%) (Auto) 2 % (0-3) Basophils (%) (Auto) 1 % (0-3) Neutrophils # (Auto) 4.9 x10^3/uL (1.8-7.7) Lymphocytes # (Auto) 1.3 x10^3/uL (1.0-4.8) Monocytes # (Auto) 0.8 x10^3/uL (0.0-1.1) Eosinophils # (Auto) 0.2 x10^3/uL (0.0-0.7) Basophils # (Auto) 0.1 x10^3/uL (0.0-0.2) Sodium Level 140 mmol/L (136-145) Potassium Level 5.1 mmol/L (3.5-5.1) Chloride Level 103 mmol/L (98-107) Carbon Dioxide Level 22 mmol/L (21-32) Anion Gap 15 (6-14) Blood Urea Nitrogen 48 mg/dL (7-20) Creatinine 7.9 mg/dL (0.6-1.0) Estimated GFR (Cockcroft-Gault) 5.3 Glucose Level 76 mg/dL (70-99) Calcium Level 7.3 mg/dL (8.5-10.1) Triglycerides Level 85 mg/dL (0-150) Cholesterol Level 202 mg/dL (0-200) LDL Cholesterol, Calculated 138 mg/dL (0-100) VLDL Cholesterol, Calculated 17 mg/dL (0-40) Non-HDL Cholesterol Calculated 155 mg/dL (0-129) HDL Cholesterol 47 mg/dL (40-60) Cholesterol/HDL Ratio 4.3 Thyroid Stimulating Hormone (TSH) 2.321 uIU/mL (0.358-3.74) Micro Micro Microbiology 02/01/21 Blood Culture - Preliminary, Resulted NO GROWTH AFTER 1 DAY Review of Systems Constitutional: yes: alert, oriented Ears/Nose/Throat: Yes: no symptom reported Eyes: Yes: no symptom reported Pulmonary: Yes no symptom reported Cardiovascular: Yes no symptom reported Gastrointestional: Yes: no symptom reported Genitourinary: Yes: no symptom reported Musculoskeletal: Yes: no symptom reported Skin: Yes no symptom reported Psychiatric/Neurological: Yes: no symptom reported Endocrine: Yes: no symptom reported Physical Exam General Appearance: no apparent distress Skin: warm Respiratory: bilateral CTA Heart: S1S2 Abdomen: soft, bowel sounds present Genitourinary: bladder flat Extremities: pulses present Neurology: alert, oriented Musculoskeletal: Osteoarthritis Assessment Assessment IMP HYPERKALEMIA ESRD-TTS ANEMIA HTN CHF-DIASTOLIC PULM EDME PLAN HD TODAY UF TO TW CONT HOME MEDS BRENT NEEDED ENC COMPLIANCE PROB D/C AFTER HD TODAY JEREMIE MILLS MD Feb 02, 2021 11:44
[2021-02-02] MEDS ORDERED: ONDANSETRON PF 4 MG/2 ML VIAL. IVP ONE (12:30)
--- NOTE | 2021-02-02 16:00 | NUR ---
SS following for discharge planning. SS reviewed pt chart and discussed with pt RN. Pt is from home with spouse and is currently on room air. COVID19 negative. [facility] ; [phone], Saturday, , and Saturday 2nd shift. Nephrology following. Pt has had [facility], ; fax [phone] in the past. SS will continue to follow for discharge planning.
--- NOTE | 2021-02-05 10:11 | PDOC ---
Provider Note Date of Service: DATE: 02/05/21 TIME: 10:10 Provider Note Discharge summary dictated.#[id number]. Justifications for Admission Other Justification DUY MCDONALD MD February 05, 2021 10:11
--- NOTE | 2021-02-05 13:13 | DS ---
DATE OF DISCHARGE: 02/02/2021 REASON FOR ADMISSION: The patient missed dialysis. Potassium was 7.2. CONSULTATION: Renal, Dr. Delgadillo. PROCEDURE DONE: Dialysis. HOSPITAL COURSE: The patient is a 55-year-old female with end-stage renal disease on dialysis Saturday, and Saturday. She went to dialysis at [facility] on Saturday, but her dialysis center was closed because there was a water leakage at the dialysis center, so she could not get dialyzed. She came to the next day, not feeling well, was found to have potassium of 7.2. The patient was admitted to the hospital. Emergency dialysis was done. Her potassium came down to 5 and the patient was feeling better and she was discharged. The patient was dialyzed 2 days in a row and she was discharged the next day. FINAL DIAGNOSES: 1. Hyperkalemia secondary to end-stage renal disease. The patient missed dialysis. 2. End-stage renal disease, on chronic hemodialysis. Missed dialysis because of facility problems and orthostatic hypotension secondary to autonomic neuropathy. DISPOSITION: Home. I will see him back for additional medications. She is scheduled for outpatient dialysis on Saturday, and Saturday. SLIM DR: Juan TID: [id number]
== END 2021-02-02 17:46 | disposition home or self-care (01) | DRG 640 ==
LOC: ER 10:02 → 1 WEST ICU 11:36
PROVIDERS: ADMIT Internal Medicine; ATTEND Internal Medicine
PROC: 5A1D70Z Performance of Urinary Filtration, Intermittent, Less than 6 Hours Per Day (ICD-10-PCS; 2021-02-01)
PROC: 5A1D70Z Performance of Urinary Filtration, Intermittent, Less than 6 Hours Per Day (ICD-10-PCS; principal; 2021-02-02)
DX: E87.5 Hyperkalemia (principal); N18.6 End stage renal disease; I13.2 Hypertensive heart and chronic kidney disease with heart failure and with stage 5 chronic kidney disease, or end stage renal disease; I50.30 Unspecified diastolic (congestive) heart failure; N17.9 Acute kidney failure, unspecified; I48.20 Chronic atrial fibrillation, unspecified; D64.9 Anemia, unspecified; E11.22 Type 2 diabetes mellitus with diabetic chronic kidney disease; E11.43 Type 2 diabetes mellitus with diabetic autonomic (poly)neuropathy; I95.1 Orthostatic hypotension; Z20.822 Contact with and (suspected) exposure to COVID-19; Z82.49 Family history of ischemic heart disease and other diseases of the circulatory system; Z87.891 Personal history of nicotine dependence; Z90.710 Acquired absence of both cervix and uterus; Z99.2 Dependence on renal dialysis; E21.3 Hyperparathyroidism, unspecified; M19.90 Unspecified osteoarthritis, unspecified site; Z79.01 Long term (current) use of anticoagulants; Z88.8 Allergy status to other drugs, medicaments and biological substances
CPT/HCPCS: 36415; 71045; 80048; 80053; 80061; 83605; 83735; 84443; 84484; 85025; 85610; 87040; 87804; 93005; 96360; 99285; J2405; J3490; J7030; J7060; U0003; U0005; G0378